=== PATIENT | female | born 1935 | race Caucasian/White ===

== ENCOUNTER 2017-04-23 06:10 | Observation (INO) | payer MEDICARE, OTHER ==
[~2017-04-23] VITALS: Ht 161.3 cm; Wt 59.7 kg
[2017-04-23] MEDS ORDERED: BACITRACIN 50,000 UNIT ONE (06:58)
[2017-04-23] MEDS ORDERED: BUPIVACAINE/PF-EPI 0.5% 1:200K ONE (06:58)
[2017-04-23] MEDS ORDERED: THROMBIN 5,000 UNIT VIAL TP ONE (06:58)
[2017-04-23] MEDS ORDERED: LACTATED RINGERS 1,000 ML IV SCH (07:11)
[2017-04-23] MEDS ORDERED: DORZ10DR7 EACHEYE (07:15)
[2017-04-23] MEDS ORDERED: POLY17PO5 PO (07:15)
[2017-04-23] MEDS ORDERED: PRAV40TA2 PO (07:15)
[2017-04-23] MEDS ORDERED: BENA40TA2 PO (07:15)
[2017-04-23] MEDS ORDERED: LATA2.5D3 EACHEYE (07:15)
[2017-04-23] MEDS ORDERED: ACET-1600 PO (07:15)
[2017-04-23] MEDS ORDERED: AMLO2.5T PO (07:15)
[2017-04-23 07:18] VITALS: BP 168/91
[2017-04-23] MEDS ORDERED: LIDOCAINE 1%, 2ML SQ PRN (07:30)
[2017-04-23] MEDS ORDERED: MIDAZOLAM 1 MG/ML, 2ML ONE (08:59)
[2017-04-23] MEDS ORDERED: FENTANYL PF 100 MCG/2ML ONE ×2 (09:00)
[2017-04-23] MEDS ORDERED: ACETAMINOPHEN 325 MG TABLET PO PRN (10:30)
[2017-04-23] MEDS ORDERED: METOPROLOL 1 MG/ML, 5ML IV PRN (10:30)
[2017-04-23] MEDS ORDERED: ALBUTEROL SULFATE 2.5 MG/3 ML NPPB PRN (10:30)
[2017-04-23] MEDS ORDERED: hydrALAzine 20 MG/ML, 1ML IV PRN (10:30)
[2017-04-23] MEDS ORDERED: MIDAZOLAM 1 MG/ML, 2ML IV PRN (10:30)
[2017-04-23] MEDS ORDERED: ONDANSETRON 2MG/ML, 2ML IVPush PRN ×2 (10:30→11:00)
[2017-04-23] MEDS ORDERED: HYDROcodone/APAP 7.5-325MG/15ML UDC PO PRN (10:30)
[2017-04-23] MEDS ORDERED: LABETALOL 5MG/ML, 20ML IV PRN (10:30)
[2017-04-23] MEDS ORDERED: OXYcodone 5 MG/5 ML ORAL.SOL UDC PO PRN (10:30)
[2017-04-23] MEDS ORDERED: EPHEDRINE 50 MG/ML, 1ML IVPush PRN (10:30)
[2017-04-23] MEDS ORDERED: KETOROLAC 30 MG/1 ML IV PRN (10:30)
[2017-04-23] MEDS ORDERED: METOCLOPRAMIDE 5 MG/ML, 2ML IV PRN (10:30)
[2017-04-23] MEDS ORDERED: FENTANYL PF 100 MCG/2ML IV PRN (10:30)
[2017-04-23] MEDS ORDERED: TIZANIDINE 4MG TABLET PO PRN (11:00)
[2017-04-23] MEDS ORDERED: MEPERIDINE/PF 100 MG/ML IM PRN (11:00)
[2017-04-23] MEDS ORDERED: DIPHENHYDRAMINE 50 MG/ML, 1ML IVPush PRN (11:00)
[2017-04-23] MEDS ORDERED: PHARMACY MAY ADJ FOR RENAL FX MC PRN (11:00)
[2017-04-23] MEDS ORDERED: MAGNESIUM HYDROXIDE 8%, 30ML UDC PO PRN (11:00)
[2017-04-23] MEDS ORDERED: BISACODYL 10 MG SUPP PR PRN (11:00)
[2017-04-23] MEDS ORDERED: HYDROmorphone 1 MG/ML, 1ML IVPush PRN (11:00)
[2017-04-23] MEDS ORDERED: OXYcodone/APAP 5/325MG TABLET PO PRN (11:00)
[2017-04-23] MEDS ORDERED: PROMETHAZINE 25 MG/ML, 1ML IM PRN (11:00)
[2017-04-23] MEDS ORDERED: ACETAMINOPHEN 650 MG/20.3 ML UDC ONE (11:14)
[2017-04-23] MEDS ORDERED: OXYcodone 5 MG/5 ML ORAL.SOL UDC ONE ×2 (11:14→11:24)
[2017-04-23] MEDS ORDERED: HYDROmorphone 1 MG/ML, 1ML ONE (11:14)
[2017-04-23] MEDS ORDERED: ACETAMINOPHEN 325 MG/10.15 ML UDC ONE (11:14)
[2017-04-23] MEDS: HYDROmorphone 1 MG/ML, 1ML IV PRN ×2 (11:33→11:40)
[2017-04-23] MEDS ORDERED: MEPERIDINE/PF 25MG/0.5ML ONE (11:42)
[2017-04-23 13:27] VITALS: BP 120/76
[2017-04-23 13:30] VITALS: BP 120/76
[2017-04-23] MEDS: NS + 20MEQ KCL 1,000 ML IV SCH (14:11)
[2017-04-23] MEDS ORDERED: DEXAMETHASONE 4 MG/ML, 1ML ONE (16:38)
[2017-04-23] MEDS ORDERED: CEFAZOLIN 1,000 MG ONE (16:38)
[2017-04-23] MEDS ORDERED: hydrALAzine 20 MG/ML, 1ML ONE (16:38)
[2017-04-23] MEDS ORDERED: ONDANSETRON 2MG/ML, 2ML ONE (16:38)
[2017-04-23] MEDS ORDERED: SUCCINYLCHOLINE 20 MG/ML, 10ML ONE (16:38)
[2017-04-23] MEDS ORDERED: ROCURONIUM 10 MG/ML ONE (16:38)
[2017-04-23] MEDS ORDERED: PROPOFOL 10 MG/ML, 20ML ONE (16:38)
[2017-04-23] MEDS: CEFAZOLIN PMX 1GM/50ML 50 ML IVPB SCH (17:05)
[2017-04-23 20:24] VITALS: BP 124/75
[2017-04-23] MEDS ORDERED: PRAVASTATIN 40 MG TABLET PO SCH (21:00)
[2017-04-23] MEDS: LATANOPROST OPHTH 0.005%, 2.5ML EACHEYE SCH (22:10)
[2017-04-23] MEDS: TEMPLATE NON-FORMULARY MED. (Dorzolamide Hcl/Timolol Maleat (Dorzolamide-Timolol Eye Drops EACHEYE SCH (22:10)
[2017-04-23] MEDS: SODIUM CHLORIDE FLUSH 10ML SYR IVF SCH (22:11)
[2017-04-23 23:57] VITALS: BP 120/80
[2017-04-24] MEDS: NS + 20MEQ KCL 1,000 ML IV SCH ×3 (00:01→22:00)
[2017-04-24] MEDS: CEFAZOLIN PMX 1GM/50ML 50 ML IVPB SCH (00:01)
[2017-04-24 04:27] VITALS: BP 151/80
[2017-04-24] MEDS: HYDROcodone/APAP 10/325 MG TABLET PO PRN ×2 (04:30→15:57)
[2017-04-24 08:08] VITALS: BP 130/68
[2017-04-24] MEDS: PRAVASTATIN 40 MG TABLET PO SCH (08:52)
[2017-04-24] MEDS: AMLODIPINE 2.5 MG TABLET PO SCH (08:53)
[2017-04-24] MEDS: SENNA/DOCUSATE TABLET PO SCH (08:53)
[2017-04-24] MEDS: POLYETHYLENE GLYCOL 17 GM PACKET PO SCH (08:53)
[2017-04-24] MEDS: BENAZEPRIL 20 MG TABLET PO SCH (08:53)
[2017-04-24] MEDS: SODIUM CHLORIDE FLUSH 10ML SYR IVF SCH ×2 (08:54→21:00)
[2017-04-24] MEDS: TEMPLATE NON-FORMULARY MED. (Dorzolamide Hcl/Timolol Maleat (Dorzolamide-Timolol Eye Drops EACHEYE SCH ×2 (08:54→19:51)
[2017-04-24 13:19] VITALS: BP 104/62
[2017-04-24 19:37] VITALS: BP 125/69
[2017-04-24] MEDS: LATANOPROST OPHTH 0.005%, 2.5ML EACHEYE SCH (19:51)
[2017-04-25 03:23] VITALS: BP 156/82
[2017-04-25] MEDS: NS + 20MEQ KCL 1,000 ML IV SCH (07:00)
[2017-04-25 07:34] VITALS: BP 147/76
[2017-04-25] MEDS: SODIUM CHLORIDE FLUSH 10ML SYR IVF SCH (08:29)
[2017-04-25] MEDS: SENNA/DOCUSATE TABLET PO SCH (08:29)
[2017-04-25] MEDS: HYDROcodone/APAP 10/325 MG TABLET PO PRN (08:37)
[2017-04-25] MEDS: PRAVASTATIN 40 MG TABLET PO SCH (08:38)
[2017-04-25] MEDS: POLYETHYLENE GLYCOL 17 GM PACKET PO SCH (08:38)
[2017-04-25] MEDS: AMLODIPINE 2.5 MG TABLET PO SCH (08:38)
[2017-04-25] MEDS: BENAZEPRIL 20 MG TABLET PO SCH (08:38)
[2017-04-25] MEDS: TEMPLATE NON-FORMULARY MED. (Dorzolamide Hcl/Timolol Maleat (Dorzolamide-Timolol Eye Drops EACHEYE SCH (08:38)
[2017-04-25] MEDS ORDERED: TIZA2TAB PO (08:45)
[2017-04-25] MEDS ORDERED: HYDR-3307 PO (08:45)
[2017-04-25 12:18] VITALS: BP 150/76
== END 2017-04-25 13:04 | disposition home or self-care (01) ==
LOC: OUT 06:10 → ORIP 10:45 → 4NOR 12:56 → DCLOUNGE 04-25 12:35
PROVIDERS: ADMIT Neurological Surgery; ATTEND Neurological Surgery
DX: M48.06 Spinal stenosis, lumbar region (principal); M54.16 Radiculopathy, lumbar region
CPT/HCPCS: 63047; 63048; 72100; 96365; 96375; 97116; 97162; 97165; 97530; G0378; J0330; J0360; J0690; J1100; J1170; J2250; J2405; J2704; J3010; J3480; J7120